=== PATIENT | male | born 1990 | race Caucasian/White ===

== ENCOUNTER 2019-02-23 21:33 | Emergency (ER) | payer OTHER ==
[~2019-02-23] VITALS: Ht 175.3 cm; Wt 106.6 kg
[~2019-02-23 21:33] MED LIST: CEPHALEXIN500 MG PO
--- NOTE | 2019-02-24 14:24 | EKG ---
[facility] [address] [facility] [place] [address] Signed Normal sinus rhythm Normal ECG When compared with ECG of 23-FEB-2019 21:37, (Unconfirmed) Vent. rate has decreased BY [address] no longer depressed in Inferior leads ST no longer depressed in Lateral leads Confirmed by CAIN RUSSO MD ([id number]) on 02/24/2019 2:24:38 PM Electronically Signed By: CAIN RUSSO MD 02/24/19 1424 PATIENT NAME: RODNEYMARIBELLUIS A MANNINGWN Electrocardiogram DATE OF : 86 PHYSICIAN: CAIN RUSSO MD REPORT #: [id number] REPORT IS CONFIDENTIAL AND NOT TO BE RELEASED WITHOUT AUTHORIZATION
--- NOTE | 2019-02-24 14:24 | EKG ---
[facility] [address] [facility] [place] [address] Signed Supraventricular tachycardia Nonspecific ST abnormality Abnormal ECG No previous ECGs available Confirmed by CAIN RUSSO MD ([id number]) on 02/24/2019 2:24:11 PM Electronically Signed By: CAIN RUSSO MD 02/24/19 1424 PATIENT NAME: LISBETH STEVENS Electrocardiogram DATE OF : 86 PHYSICIAN: CAIN RUSSO MD REPORT #: [id number] REPORT IS CONFIDENTIAL AND NOT TO BE RELEASED WITHOUT AUTHORIZATION
== END 2019-02-23 23:30 | disposition home or self-care (01) ==
LOC: ED 21:33
DX: I47.1 Supraventricular tachycardia (principal)
CPT/HCPCS: 71045; 80053; 84443; 85025; 93005; 93010; 96360; 99285-25; J7030

== ENCOUNTER 2019-10-08 08:05 | Day surgery (SDC) | payer OTHER ==
[~2019-10-08] VITALS: Ht 175.3 cm; Wt 114.8 kg
[~2019-10-08 08:05] MED LIST changes: +FENOFIBRATE145 MG PO; +TENORMIN50 MG PO
--- NOTE | 2019-10-08 10:07 | NUR ---
10/08/19 1007 Merlyn Ryan 0932 PT ARRIVED IN PACU SLEEPY WITH NO C/O'S. ABD SOFT. 0945 RESTING. REU. 1005 AWAKE SITTING UP IN BED SIPPING ON WATER.
--- NOTE | 2019-10-09 09:57 | OR ---
[facility] [address] [place], [place] [address] Signed DATE OF OPERATION: 10/08/2019 SURGEON: Artie Adkins MD PREOPERATIVE DIAGNOSES: 1. Intermittent rectal bleeding. 2. Rectal/anal pain with bowel movements. POSTOPERATIVE DIAGNOSIS: Small internal anal skin tags x2. PROCEDURES: 1. Colonoscopy without biopsy. 2. Anoscopy. 3. Rigid proctoscopy. ESTIMATED BLOOD LOSS: None. FINDINGS: Jordan had two small internal anal skin tags. He has incredible strength through his anal sphincter muscles. We could not directly visualize an obvious fissure in the anterior or posterior midline. 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 He is also going to EMT school currently. He said he has had intermittent rectal bleeding on and off for many years. He said the last few months, it has been more frequent. He said he has had tremendous pain with bowel movements, even liquid stool bothers him. He said he tried to limit himself to just one bowel movement a day. He said he feels like something is blocking the stool and he is pretty convinced the stool comes out sideways. He had been to his primary care provider. He was given hydrocortisone cream. He tried a little bit, but it did not seem to make a difference, so he stopped using it. In the meantime, he was asked to see me. In the office on exam, he has excellent perianal hygiene. No obvious external hemorrhoids. His anal sphincter tone is significantly high and we could not even introduce our index finger into the anal canal. I tried my best pull back on his skin in the office and I thought he might have an acute shallow posterior midline anal fissure. We decided we would bring him to the endoscopy suite under sedation for a full colonoscopy along with anoscopy as well. Hopefully, with the Versed and fentanyl on board, we would have a better anal exam. I did review with him Electronically Signed By: ARTIE ADKINS MD 10/09/19 0619 Electronically Signed By: ARTIE ADKINS MD 10/09/19 1055 PATIENT NAME: JORDAN STEVENS OPERATIVE REPORT DATE OF : 86 REPORT #: [id number] PHYSICIAN: ARTIE ADKINS MD PCP: GLADYS ESPOSITO PA-C REPORT IS CONFIDENTIAL AND NOT TO BE RELEASED WITHOUT AUTHORIZATION [facility] [address] [place], [place] [address] Signed colonoscopy in detail. I gave him a handout to review as well. He understands the nature of the test along with its risks including, but not limited to gas bloating, crampy abdominal pain, bleeding, perforation requiring surgery, and missed diagnosis. He also understands the need for IV conscious sedation. He had expressed understanding and wished to proceed. PROCEDURE NOTE: Jordan was taken into our endoscopy suite and placed in the left lateral decubitus position. He was given a total of 10 mg of Versed and 200 mcg of fentanyl, which is common for younger patients. On digital rectal exam, he had awakened and again he felt like his pain is mostly in the posterior midline. Even with traction, I really could not observe an obvious posterior midline anal fissure. He has unbelievable sphincter tone even with the Versed and fentanyl on board. The adult colonoscope was introduced and advanced under direct visualization up to the cecum. His prep was quite good. The scope was slowly withdrawn. We have taken several pictures throughout for photodocumentation. The scope had been retroflexed in his rectum and it looks like he has two small internal anal skin tags. Not much really in the way of internal hemorrhoid tissue. The gas had been suctioned out and the colonoscope removed. We had to use our pediatric anoscope and our pediatric proctoscope in order to do our best to examine his anal canal. Even then, he was waking up and his sphincter tone was unbelievable. We examined the full length of the anal canal several times. Unfortunately, we do not have a slotted anoscope. Nevertheless, I never could convince myself that he has an obvious posterior midline anal fissure. After this, his procedure was terminated. He was then taken into recovery room in stable condition. Overall, he tolerated the procedure well. RECOMMENDATIONS: Jordan is encouraged to finish his hydrocortisone cream for possible anal fissure. If his pain does not improve, he will give our office a call. He most likely has an acute anal fissure that has been healing. He also has ringworm on his leg and hip. 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 He is quite familiar with that. He knows to go to the store to buy antifungal cream and place over those areas. Artie Adkins MD [facility] /[id number] Electronically Signed By: ARTIE ADKINS MD 10/09/19 0619 Electronically Signed By: ARTIE ADKINS MD 10/09/19 1055 PATIENT NAME: JORDAN STEVENS OPERATIVE REPORT DATE OF : 86 REPORT #: [id number] PHYSICIAN: ARTIE ADKINS MD PCP: GLADYS ESPOSITO PA-C REPORT IS CONFIDENTIAL AND NOT TO BE RELEASED WITHOUT AUTHORIZATION [address] [place], [place] [address] Signed cc: MD Kierra Oneal MD Copies: ARTIE ADKINS MD ~ Electronically Signed By: ARTIE ADKINS MD 10/09/19 0619 Electronically Signed By: ARTIE ADKINS MD 10/09/19 1055 PATIENT NAME: JORDAN STEVENS OPERATIVE REPORT DATE OF : 86 REPORT #: [id number] PHYSICIAN: ARTIE ADKINS MD PCP: GLADYS ESPOSITO PA-C REPORT IS CONFIDENTIAL AND NOT TO BE RELEASED WITHOUT AUTHORIZATION
== END 2019-10-08 10:15 | disposition home or self-care (01) ==
LOC: OPS 08:05 → DS 08:08 → OPS 09:45 → DS 10:30
PROVIDERS: Colon & Rectal Surgery
PROC: 0DJD8ZZ Inspection of Lower Intestinal Tract, Via Natural or Artificial Opening Endoscopic (ICD-10-PCS; principal; 2019-10-08 09:45)
DX: K64.4 Residual hemorrhoidal skin tags (principal); K62.89 Other specified diseases of anus and rectum; I10 Essential (primary) hypertension; E78.1 Pure hyperglyceridemia; E66.9 Obesity, unspecified; F17.220 Nicotine dependence, chewing tobacco, uncomplicated; Z68.37 Body mass index [BMI] 37.0-37.9, adult; Z79.899 Other long term (current) drug therapy
CPT/HCPCS: 99153; G0500; J2250; J3010; J7121